=== PATIENT | female | born 1995 | race Caucasian/White ===

== ENCOUNTER 2016-12-11 08:40 | Emergency (ER) | payer BC ==
[~2016-12-11] VITALS: Ht 177.8 cm; Wt 80.0 kg
[2016-12-11 08:41] VITALS: BP 138/72; PULSE 82; RESP 20; TEMP 97.7; O2SAT 100
[2016-12-11 09:09] VITALS: BP_SYST 118; BP_SYST 126; BP_DIAS 62; BP_DIAS 71
[2016-12-11 09:24] LABS: AUTOMATED NEUTROPHIL # 8.9 TH/MM3 (1.8-7.7); BASOPHIL % 0.3 % (0.0-2.0); EOSINOPHIL % 0.4 % (0.0-4.0); HEMATOCRIT 44.6 % (35.0-46.0); HEMO FLAGS DIFF FINAL; LYMPH % 4.9 % (9.0-44.0); LYMPHOCYTE # 0.5 TH/MM3 (1.0-4.8); MEAN CELL VOLUME 87.4 FL (80.0-100.0); MEAN CORPUSCULAR HEMOGLOBIN 30.5 PG (27.0-34.0); MEAN CORPUSCULAR HGB CONC 34.8 % (32.0-36.0); MONO % 6.2 % (0.0-8.0); NEUT % 88.2 % (16.0-70.0); PLATELET COUNT 218 TH/MM3 (150-450); RED CELL DISTRIBUTION WIDTH 12.4 % (11.6-17.2); WHITE BLOOD COUNT 10.1 TH/MM3 (4.0-11.0)
[2016-12-11 09:38] LABS: BLOOD, URINE MOD (NEG); GLUCOSE,URINE NEG (NEG); KETONE, URINE NEG (NEG); MUCUS URINE FEW /lpf (OCC); NITRITE,URINE NEG (NEG); PH, URINE 5.5 (5.0-8.5); SQUAMOUS EPITHELIAL CELL URINE <1 /hpf (0-5); URINE COLOR YELLOW (YELLW/STRAW)
--- NOTE | 2016-12-11 09:39 | RADRPT ---
EXAM DATE/TIME: 12/11/2016 09:33 [facility] COMPARISON: No previous studies available for comparison. INDICATIONS : Chest pain and vomiting. MEDICAL HISTORY : None. SURGICAL HISTORY : None. ENCOUNTER: Initial ACUITY: 2 days PAIN SCORE: 4/10 LOCATION: Bilateral chest FINDINGS: PA and lateral views of the chest demonstrate a normal-sized cardiac silhouette. There is no effusion , consolidation, or pneumothorax. The bones and soft tissues demonstrate no acute abnormality. Bilate ral nipple piercings are present. CONCLUSION: No acute cardiopulmonary abnormality is identified. Avila Shukla MD on December 11, 2016 at 9:37 Board Certified Radiologist. This report was verified electronically.
[2016-12-11 09:41] LABS: COMMENT (UR) CULT NOT INDICATED; CULTURE IF INDICATED CULT NOT INDICATED
[2016-12-11 09:42] LABS: APTT (PATIENT) 29.5 SEC (24.3-30.1); PROTHROMBIN TIME - PATIENT 11.5 SEC (9.8-11.6)
[2016-12-11 09:53] LABS: ANION GAP 9 MEQ/L (5-15); AST (GOT) 16 U/L (16-38); BICARBONATE 23.5 MEQ/L (21.0-32.0); BLOOD UREA NITROGEN 10 MG/DL (7-18); CHLORIDE 104 MEQ/L (98-107); GLOMERULAR FILTRATION RATE 127 ML/MIN (>89); MAGNESIUM 1.8 MG/DL (1.5-2.5); POTASSIUM 3.8 MEQ/L (3.5-5.1); SODIUM (NA) 136 MEQ/L (136-145)
[2016-12-11 09:54] LABS: ALT (GPT) 22 U/L (9-42)
[2016-12-11 09:57] LABS: ALKALINE PHOSPHATASE 65 U/L (45-117)
[2016-12-11 10:00] LABS: CREATINE KINASE 73 U/L (26-192)
[2016-12-11] MEDS ORDERED: MORPHINE SULFATE 4 MG/ML INJ IV PUSH ONE (10:15)
[2016-12-11] MEDS ORDERED: SODIUM CHLOR 0.9% 1000 ML INJ 1,000 ML IV ONE (10:15)
[2016-12-11] MEDS ORDERED: ONDANSETRON HCL 4 MG/2 ML VIAL IV PUSH ONE (10:15)
[2016-12-11 10:25] VITALS: RESP 16
[2016-12-11] MEDS ORDERED: IOHEXOL 350 MG/ML 10 ML VIAL (for RAD DIAG) IV ONE (10:42)
--- NOTE | 2016-12-11 10:50 | RADRPT ---
EXAM DATE/TIME: 12/11/2016 10:27 [facility] COMPARISON: No previous studies available for comparison. INDICATIONS : Left side chest and back pain. IV CONTRAST: 74 cc Omnipaque 350 (iohexol) IV RADIATION DOSE: 9.15 CTDIvol (mGy) MEDICAL HISTORY : None SURGICAL HISTORY : None. ENCOUNTER: Initial ACUITY: 1 day PAIN SCALE: 5/10 LOCATION: Left upper chest TECHNIQUE: Volumetric scanning of the chest was performed using a pulmonary embolism protocol MIP images were re constructed. Using automated exposure control and adjustment of the mA and/or kV according to patien t size, radiation dose was kept as low as reasonably achievable to obtain optimal diagnostic quality images. DICOM format image data is available electronically for review and comparison. Follow-up recommendations for incidentally detected pulmonary nodules are based at a minimum on nodul e size and patient risk factors according to Fleischner Society Guidelines. FINDINGS: PULMONARY ARTERIES: No filling defects are seen in the pulmonary arteries through the segmental level. LUNGS: There is no consolidation or pneumothorax . 5 mm ovoid solid nodular opacity in the right middle lobe . No concerning pulmonary nodule is visualized. PLEURAE: There is no pleural thickening or pleural effusion. MEDIASTINUM: There is good visualization of the great vessels of the middle mediastinum. No evidence of mediastin al or hilar adenopathy/mass. MUSCULOSKELETAL: Within normal limits for patient age. MISCELLANEOUS: The visualized upper abdominal organs demonstrate no acute abnormality. CONCLUSION: 1. No CT evidence for pulmonary embolism to the subsegmental level. 2. 5 mm ovoid solid nodular opacity in the right middle lobe. No followup is recommended for low risk patients and optional CT in 12 months for high risk patients per 2017 Fleischner criteria. Zac Hardy MD on December 11, 2016 at 10:43 Board Certified Radiologist. This report was verified electronically.
--- NOTE | 2016-12-11 11:38 | PD ---
HPI Chief Complaint: Chest Pain Time Seen by Provider: 08:58 Travel History International Travel<30 days: No Contact w/Intl Traveler<30days: No Traveled to known affect area: No History of Present Illness HPI Patient is a 21 year old female who comes in with complaints of back pain, chest pain, nausea, vomiting, and diarrhea. She says she started having back pain yesterday and then developed some burning in her chest. She says she was feeling nauseous and then started having vomiting and diarrhea. She denies any abdominal pain. She denies fevers, but has been sweating. She denies drug use. She denies family history of heart problems. She denies cough or SOB. She denies any recent travel, control use, or leg pain or swelling. [facility] Past Medical History Medical History: Denies Significant Hx Diminished Hearing: No Influenza Vaccination: Yes ?: Not LMP: 12/09/16 Menopausal: No Past Surgical History Surgical History: No Previous Surgery Social History Alcohol Use: No Tobacco Use: Yes (Occasionally) Substance Use: No Allergies-Medications (Allergen,Severity, Reaction): Coded Allergies: No Known Allergies (Unverified , 12/11/16) Review of Systems Except as stated in HPI: all other systems reviewed are Neg General / Constitutional: No: Fever, Chills Eyes: No: Blurred Vision HENT: No: Headaches, Lightheadedness Cardiovascular: Positive: Chest Pain or Discomfort Respiratory: No: Shortness of Breath Gastrointestinal: Positive: Nausea, Vomiting, Diarrhea, No: Abdominal Pain Genitourinary: No: Dysuria Musculoskeletal: No: Edema, Pain Skin: No Rash, No Change in Pigmentation Neurologic: No: Weakness, Dizziness Physical Exam Narrative GENERAL: Awake and alert, in no acute distress. SKIN: Skin is pink, warm but sweaty. No signs of infection. HEAD: Atraumatic. Normocephalic. EYES: Pupils equal and round. No scleral icterus. ENT: Mucous membranes pink and moist. NECK: Trachea midline. No JVD. CARDIOVASCULAR: Regular rate and rhythm. No murmur appreciated. Tenderness to the left chest wall. RESPIRATORY: No accessory muscle use. Clear to auscultation. Breath sounds equal bilaterally. GASTROINTESTINAL: Abdomen soft, nondistended. Mild tenderness to the epigastric area. No rebound or guarding. No CVA tenderness. MUSCULOSKELETAL: No obvious deformities. No clubbing. No cyanosis. No edema. No tenderness to palpation of the spine. Back pain is not reproducible. No calf swelling or tenderness. NEUROLOGICAL: Awake and alert. No obvious cranial nerve deficits. Motor grossly within normal limits. Normal speech. PSYCHIATRIC: Appropriate mood and affect; insight and judgment normal. Data Data Last Documented VS Vital Signs Date Time Temp Pulse Resp B/P Pulse Ox O2 Delivery O2 Flow Rate FiO2 12/11/16 12:04 100 12/11/16 10:25 16 12/11/16 09:09 126/71 118/62 12/11/16 08:55 84 12/11/16 08:41 97.7 Room Air Orders Electrocardiogram (12/11/16 08:58) Ckmb (Isoenzyme) Profile (12/11/16 08:58) Complete Blood Count With Diff (12/11/16 08:58) Comprehensive Metabolic Panel (12/11/16 08:58) D-Dimer (12/11/16 08:58) Magnesium (Mg) (12/11/16 08:58) Prothrombin Time / Inr (Pt) (12/11/16 08:58) Act Partial Throm Time (Ptt) (12/11/16 08:58) Troponin I (12/11/16 08:58) Lipase (12/11/16 08:58) Ecg Monitoring (12/11/16 08:58) Bilateral Bp Monitoring (12/11/16 08:58) Iv Access Insert/Monitor (12/11/16 08:58) Oximetry (12/11/16 08:58) Chest, Pa & Lat (12/11/16 08:58) Urinalysis - C+S If Indicated (12/11/16 08:58) Ed Urine Pregnancytest Poc (12/11/16 08:58) Sodium Chlor 0.9% 1000 Ml Inj (Ns 1000 M (12/11/16 10:15) Ondansetron Inj (Zofran Inj) (12/11/16 10:15) Morphine Inj (Morphine Inj) (12/11/16 10:15) Ct Pulmonary Angiogram (12/11/16 10:02) Iohexol 350 Inj (Omnipaque 350 Inj) (12/11/16 10:42) Labs Laboratory Tests Test 8/3/17 8/3/17 09:00 09:17 White Blood Count 10.1 TH/MM3 Red Blood Count 5.10 MIL/MM3 Hemoglobin 15.5 GM/DL Hematocrit 44.6 % Mean Corpuscular Volume 87.4 FL Mean Corpuscular Hemoglobin 30.5 PG Mean Corpuscular Hemoglobin 34.8 % Concent Red Cell Distribution Width 12.4 % Platelet Count 218 TH/MM3 Mean Platelet Volume 8.0 FL Neutrophils (%) (Auto) 88.2 % Lymphocytes (%) (Auto) 4.9 % Monocytes (%) (Auto) 6.2 % Eosinophils (%) (Auto) 0.4 % Basophils (%) (Auto) 0.3 % Neutrophils # (Auto) 8.9 TH/MM3 Lymphocytes # (Auto) 0.5 TH/MM3 Monocytes # (Auto) 0.6 TH/MM3 Eosinophils # (Auto) 0.0 TH/MM3 Basophils # (Auto) 0.0 TH/MM3 CBC Comment DIFF FINAL Differential Comment Prothrombin Time 11.5 SEC Prothromb Time International 1.0 RATIO Ratio Activated Partial 29.5 SEC Thromboplast Time D-Dimer Quantitative (PE/DVT) 0.93 MG/L FEU Sodium Level 136 MEQ/L Potassium Level 3.8 MEQ/L Chloride Level 104 MEQ/L Carbon Dioxide Level 23.5 MEQ/L Anion Gap 9 MEQ/L Blood Urea Nitrogen 10 MG/DL Creatinine 0.60 MG/DL Estimat Glomerular Filtration 127 ML/MIN Rate Random Glucose 101 MG/DL Calcium Level 9.0 MG/DL Magnesium Level 1.8 MG/DL Total Bilirubin 1.0 MG/DL Aspartate Amino Transf 16 U/L (AST/SGOT) Alanine Aminotransferase 22 U/L (ALT/SGPT) Alkaline Phosphatase 65 U/L Total Creatine Kinase 73 U/L Troponin I LESS THAN 0.02 NG/ML Total Protein 7.1 GM/DL Albumin 3.9 GM/DL Lipase 175 U/L Urine Color YELLOW Urine Turbidity CLEAR Urine pH 5.5 Urine Specific [place] 1.028 Urine Protein NEG mg/dL Urine Glucose (UA) NEG mg/dL Urine Ketones NEG mg/dL Urine Occult Blood MOD Urine Nitrite NEG Urine Bilirubin NEG Urine Urobilinogen LESS THAN 2.0 MG/DL Urine Leukocyte Esterase NEG Urine RBC 1 /hpf Urine WBC LESS THAN 1 /hpf Urine Squamous Epithelial <1 /hpf Cells Urine Mucus FEW /lpf Microscopic Urinalysis Comment CULT NOT INDICATED MDM Medical Decision Making Medical Screen Exam Complete: Yes Emergency Medical Condition: Yes Interpretation(s) ECG shows normal sinus rhythm at 68, no ST elevation or depression, normal intervals Differential Diagnosis Gastroenteritis versus gastritis versus pericarditis versus costochondritis Narrative Course Patient is a 21-year-old female who comes in complaining of chest pain, back pain, nausea, vomiting, diarrhea. Exam shows chest wall tenderness on palpation as well as epigastric tenderness to palpation. IV established, labs sent. Troponin is negative, but d-dimer is positive. CTA of the chest performed shows no acute abnormalities. There is a small lesion in the lung, which patient was informed about. She is advised follow-up with a primary care doctor regarding this. Patient given IV fluids, pain medicine, Zofran. She reports feeling much better. I discussed the results with this patient. She has no risk factors for cardiac disease, therefore I believe this is an unlikely cause of her symptoms given her normal testing. She is advised to drink plenty of fluids. Advised to eat a bland diet. Advised follow-up with a primary care doctor. Advised to return to the emergency department as needed for any worsening symptoms. She and her significant other are comfortable with this plan at this time. Diagnosis Primary Impression: Nausea, vomiting and diarrhea Additional Impression: Musculoskeletal pain Patient Instructions: Acute Nausea and Vomiting (ED), Chest Wall Pain (ED), General Instructions Additional Instructions: Drink plenty of fluids. Eat a bland diet if you are hungry. Even take Tylenol or ibuprofen for pain. Follow-up with her primary care doctor. Return to the emergency department as needed for any worsening symptoms. Disposition: 01 DISCHARGE HOME Condition: Stable Anne Bar MD Dec 11, 2016 11:37
[2016-12-11 12:04] VITALS: O2SAT 100
--- NOTE | 2016-12-11 14:46 | EKG ---
Date Performed: 12/11/2016 Time Performed: 09:03:09 PTAGE: 21 years EKG: Sinus rhythm NORMAL ECG NO PREVIOUS TRACING DOCTOR: Yareli Johnson Interpretating Date/Time 12/11/2016 14:44:52
== END 2016-12-11 12:13 | disposition home or self-care (01) ==
LOC: NEPE 08:40
DX: R11.2 Nausea with vomiting, unspecified (principal); R19.7 Diarrhea, unspecified; R52 Pain, unspecified; R07.9 Chest pain, unspecified; M54.9 Dorsalgia, unspecified
CPT/HCPCS: 71020; 71275; 80053; 81001; 82550; 83690; 83735; 84484; 84703; 85025; 85379; 85610; 85730; 93005; 96374; 96375; 99285; J2270; J2405; J7030; Q9967

== ENCOUNTER 2016-12-25 21:00 | Emergency (ER) | payer BC ==
[~2016-12-25] VITALS: Ht 177.8 cm; Wt 83.0 kg
[2016-12-25 21:02] VITALS: BP 132/71; PULSE 97; RESP 15; TEMP 98.6; O2SAT 99
--- NOTE | 2016-12-25 21:18 | PD ---
Physical Exam Date Seen by Provider: Dec 25, 2016 Time Seen by Provider: 21:16 Narrative 21 YOWF C/O PILONIDAL CYST X 2DAYS H/O SAME. 02/17. LMP 1 MONTH VS REVIEWED WAITING FOR BED PLACEMENT Data Data Last Documented VS Vital Signs Date Time Temp Pulse Resp B/P Pulse Ox O2 Delivery O2 Flow Rate FiO2 12/25/16 21:02 98.6 97 15 132/71 99 Room Air MDM Supervised Visit with AVNI: Aristeo Rg Dec 25, 2016 21:18
[2016-12-25] MEDS ORDERED: NAPR500T PO (21:41)
[2016-12-25] MEDS ORDERED: TYLETAB34 PO (21:41)
[2016-12-25] MEDS ORDERED: AUGM875T3 PO (21:41)
[2016-12-25] MEDS ORDERED: NAPROXEN 500 MG TAB PO ONE (21:45)
[2016-12-25] MEDS ORDERED: ACETAMINOPHEN/HYDROcodone 325 MG/5 MG TAB PO ONE (21:45)
[2016-12-25] MEDS ORDERED: AMOXICILLIN/CLAVULANATE K 875 MG TAB PO ONE (21:45)
--- NOTE | 2016-12-25 21:56 | PD ---
HPI Chief Complaint: Skin Problem Time Seen by Provider: 21:30 Travel History International Travel<30 days: No Contact w/Intl Traveler<30days: No Traveled to known affect area: No History of Present Illness HPI This patient was examined in the presence of a female nurse. 21-year-old female presents for evaluation of pain in the upper gluteal cleft. Symptoms started 2 days ago. It hurts when she is sitting. It is a throbbing pain. Denies drainage, fevers or chills, rectal pain. She has had a similar pain once before, a few years ago, diagnosed with a pilonidal cyst. She has no other complaints at this time. PFSH Past Medical History Diminished Hearing: No Immunizations Current: Yes Tetanus Vaccination: Unknown Influenza Vaccination: Yes ?: Unknown LMP: 11/24/16 Menopausal: No Social History Alcohol Use: No Tobacco Use: Yes (Occasionally) Substance Use: No Allergies-Medications (Allergen,Severity, Reaction): Coded Allergies: No Known Allergies (Unverified , 12/25/16) Reported Meds & Prescriptions Reported Meds & Active Scripts Active Augmentin (Amoxicillin-Clavulanate) 875-125 Mg Tab 1 Tab PO BID 10 Days Naproxen 500 Mg Tab 500 Mg PO BID 10 Days Tylenol-Codeine #3 (Acetaminophen-Codeine) 300-30 mg Tab 1 Tab PO Q4H PRN Review of Systems Except as stated in HPI: all other systems reviewed are Neg Physical Exam Narrative GENERAL: Well-developed well-nourished female who is currently standing. SKIN: Warm and dry. Examination of the upper gluteal cleft region reveals very slight induration without erythema, drainage or fluctuance. Tender to palpation. HEAD: Atraumatic. Normocephalic. EYES: Pupils equal and round. No scleral icterus. No injection or drainage. ENT: No nasal bleeding or discharge. Mucous membranes pink and moist. NECK: Trachea midline. No JVD. . MUSCULOSKELETAL: No obvious deformities. No clubbing. No cyanosis. No edema. NEUROLOGICAL: Awake and alert. No obvious cranial nerve deficits. Motor grossly within normal limits. Normal speech. Data Data Last Documented VS Vital Signs Date Time Temp Pulse Resp B/P Pulse Ox O2 Delivery O2 Flow Rate FiO2 12/25/16 21:02 98.6 97 15 132/71 99 Room Air Orders Naproxen (Naprosyn) (12/25/16 21:45) Acetamin-Hydrocod 325-5 Mg ([place] 5-325 (12/25/16 21:45) Amoxicil-Clavulanate (Augmentin) (12/25/16 21:45) MDM Medical Decision Making Medical Screen Exam Complete: Yes Emergency Medical Condition: Yes Medical Record Reviewed: Yes Differential Diagnosis Pilonidal disease, cyst, abscess, cellulitis Narrative Course 21-year-old female 2 days of pain in the upper gluteal cleft region. Examination reveals slight induration in the pilonidal region without fluctuance or drainage. The patient is being discharged with Augmentin, naproxen and Tylenol with codeine, recommended outpatient follow up with a colorectal surgeon for definitive treatment. Diagnosis Primary Impression: Pilonidal disease Referrals: Sanjeev Restrepo MD Additional Instructions: Medication as prescribed. Warm baths 2-3 times a day 20 minutes at a time. Follow up with the colorectal surgeon such as Dr. Restrepo on an as-needed basis and return for any new or worsening symptoms. Med/Other Pt SpecificInfo: Prescription(s) given Scripts Amoxicillin-Clavulanate (Augmentin)875-125 Mg Tab1 Tab PO BID 10 Days Ref 0 Prov:Aly Gibbs MD 12/25/16 Naproxen 500 Mg Ppk297 Mg PO BID 10 Days Ref 0 Prov:Aly Gibbs MD 12/25/16 Acetaminophen-Codeine (Tylenol-Codeine #3)300-30 mg Tab1 Tab PO Q4H PRN (PAIN) # 20 TAB Ref 0 Prov:Aly Gibbs MD 12/25/16 Disposition: 01 DISCHARGE HOME Condition: Stable Tan Chavez Dec 25, 2016 21:56
== END 2016-12-25 22:02 | disposition home or self-care (01) ==
LOC: NEPK 21:00
DX: L05.91 Pilonidal cyst without abscess (principal); Z72.0 Tobacco use
CPT/HCPCS: 99284